=== PATIENT | male | born 1980 | race Caucasian/White ===

== ENCOUNTER 2017-04-14 18:17 | Inpatient (IN) | payer OTHER ==
[~2017-04-14] VITALS: Ht 177.8 cm; Wt 97.2 kg
[~2017-04-14 18:17] MED LIST: ADVAIR HFA120 INHALA IH; AMOXICILLIN875 MG PO; AUGMENTIN875 MG PO; AZITHROMYCIN250 MG1 PO; CLINDAMYCIN HC300 MG PO; LEVOFLOXACIN500 MG PO; METHADONE5 MG PO; MOTRIN800 MG PO; NAPROSYN500 MG PO; NEURONTIN100 MG PO; NOHOMEMEDS; NORCO 5/3251 TABLET PO; NORVIR100 M1; NORVIR100 M1 PO; NORVIR100 MG PO; PREZISTA400 MG; PREZISTA800 MG PO; SEROQUEL50 MG PO; SUBOXONE 8 M1 TABLET PO; TRUVADA1 TABLET; TRUVADA1 TABLET PO; VALIUM5 MG PO; VICODIN,LORT1 TABLET PO; ZITHROMAX Z-PA250 MG PO; [UNRECOGNIZED DRUG - OTHER]
[2017-04-14 19:13] LABS: HEMATOCRIT 35.8 % (38.0-50.0); MCH 29.9 PG (29.0-34.0); MCV 90.6 FL (86-99); PLATELET COUNT 194 K/uL (156-360); RBC DIS.WIDTH-CV 12.7 % (11.8-14.6); RED BLOOD COUNT 3.95 M/uL (4.00-5.50); WHITE BLOOD COUNT 9.1 K/uL (4.1-10.2)
[2017-04-14 19:20] LABS: CHLORIDE 101 mEq/L (99-109); POTASSIUM 3.4 mEq/L (3.7-5.4); SODIUM 139 mEq/L (136-147)
[2017-04-14 19:21] LABS: GLUCOSE 70 mg/dL (70-99)
[2017-04-14 19:23] LABS: ANION GAP 13 MEQ/L (2-14)
[2017-04-14 19:25] LABS: GFR ESTIMATE (CALCULATED) > 59 mL/min/
[2017-04-14 19:26] LABS: UREA NITROGEN (BUN) 6 mg/dL (9-23)
[2017-04-14 19:49] LABS: ADD MIUA? YES; BILIRUBIN NEGATIVE; BLOOD NEGATIVE; COLOR AMBER ((YELLOW)); GLUCOSE (STRIP) NEGATIVE; KETONES NEGATIVE; LEUKOCYTES NEGATIVE; NITRITE NEGATIVE; PROTEIN (STRIP) 30; SPECIFIC GRAVITY 1.025 (1.000-1.030)
[2017-04-14 20:01] LABS: BACTERIA RARE /HPF; EPITHELIAL CELLS RARE /HPF; MUCUS TRACE /LPF; RED BLOOD CELLS 0-5 /HPF (0-5); UCUL ADDED? NO; WHITE BLOOD CELLS 0-5 /HPF (0-5)
[2017-04-14] MEDS ORDERED: TYLENOL EXTRA500 MG PO (21:56)
[2017-04-14] MEDS ORDERED: VENTOLIN HFA18 GM IH (21:56)
[2017-04-14] MEDS ORDERED: DAY TIME COLD-237 ML PO (21:57)
[2017-04-15 03:21] VITALS: BP 117/61
[2017-04-15 08:12] VITALS: BP 105/56
[2017-04-15 09:33] LABS: INTERNAL CONTROL VALID? YES
[2017-04-15 16:32] VITALS: BP 109/58
[2017-04-16 00:09] VITALS: BP 104/64
[2017-04-16 06:15] LABS: EOSINOPHIL (%) 1.6 % (0-5); EOSINOPHIL COUNT 0.1 K/uL (0-0.3); HEMATOCRIT 36.3 % (38.0-50.0); IMMATURE GRANULOCYTE (%) 0.4 % (0.0-0.7); INSTRUMENT ABS NEUTROPHIL CT 3.3 K/uL; LYMPHOCYTE COUNT 1.9 K/uL (1.0-2.8); MCH 29.7 PG (29.0-34.0); MCV 93.1 FL (86-99); MEAN PLAT.VOLUME 10.5 uM^3 (9.0-12.4); MONOCYTE COUNT 0.3 K/uL (0-0.8); NEUTROPHIL (%) 57.5 % (45-76); NEUTROPHIL COUNT 3.3 K/uL (1.8-6.4); PLATELET COUNT 161 K/uL (156-360); RBC DIS.WIDTH-CV 13.2 % (11.8-14.6); RBC DIS.WIDTH-SD 44.8 % (39-53); WHITE BLOOD COUNT 5.7 K/uL (4.1-10.2)
[2017-04-16 06:46] LABS: ALKALINE PHOSPHATASE 113 IU/L (3-129); ANION GAP 8 MEQ/L (2-14); CHLORIDE 110 MEQ/L (99-109); GFR ESTIMATE (CALCULATED) > 59 mL/min/; GLUCOSE 86 mg/dL (70-99); SAMPLE HEMOLYSIS CHECK 0; SAMPLE ICTERIC CHECK 0; SAMPLE LIPEMIA CHECK 0; SODIUM 143 MEQ/L (136-147); TOTAL BILIRUBIN 0.2 MG/DL (0.0-1.0); UREA NITROGEN (BUN) 7 mg/dL (9-23)
[2017-04-16 06:47] LABS: POTASSIUM 4.4 MEQ/L (3.7-5.4)
[2017-04-16 08:52] LABS: INFLUENZA A VIRAL ANTIGEN NEGATIVE; INFLUENZA B VIRAL ANTIGEN NEGATIVE
[2017-04-16] MEDS ORDERED: DOXYCYCLINE HY100 M3 PO (10:27)
[2017-04-16] MEDS ORDERED: LEVAQUIN750 MG PO (10:27)
== END 2017-04-16 12:45 | disposition home or self-care (01) | DRG 975 ==
LOC: EME 18:17 → EDOF 04-15 00:03 → ENRESERV 04-15 00:17 → 5EAST 04-15 02:21 → ENPENDDIS 04-16 → 5EAST 04-16 12:45
PROVIDERS: Hospitalist; Internal Medicine Infectious Disease
DX: J18.9 Pneumonia, unspecified organism (principal); B20 Human immunodeficiency virus [HIV] disease; J44.0 Chronic obstructive pulmonary disease with (acute) lower respiratory infection; E87.6 Hypokalemia; J34.0 Abscess, furuncle and carbuncle of nose; F17.210 Nicotine dependence, cigarettes, uncomplicated; Z83.3 Family history of diabetes mellitus; Z23 Encounter for immunization
CPT/HCPCS: 71020; 80048; 80076; 81003; 85025; 85027; 87040; 87070; 87205; 87449; 87502; 90686; 94640; 94640 76; 99202; 99281; 99285; J0456; J0696; J1956; J2405; J7030; J7050

== ENCOUNTER 2017-10-27 08:06 | Emergency (ER) | payer OTHER ==
[~2017-10-27] VITALS: Ht 180.3 cm; Wt 93.8 kg
[~2017-10-27 08:06] MED LIST changes: +DAY TIME COLD-237 ML PO; +DOXYCYCLINE HY100 M3 PO; +LEVAQUIN750 MG PO; +TYLENOL EXTRA500 MG PO; +VENTOLIN HFA18 GM IH
[2017-10-27 08:34] LABS: HEMATOCRIT 37.8 % (38.0-50.0); HEMOGLOBIN 12.6 G/DL (12.5-16.6); MCH 29.9 PG (29.0-34.0); MCHC 33.3 G/DL (30.0-36.0); MCV 89.6 FL (86-99); PLATELET COUNT 130 K/uL (156-360); RBC DIS.WIDTH-SD 42.5 % (39-53); RED BLOOD COUNT 4.22 M/uL (4.00-5.50); WHITE BLOOD COUNT 6.6 K/uL (4.1-10.2)
[2017-10-27 09:09] LABS: CHLORIDE 104 MEQ/L (99-109); POTASSIUM 4.1 MEQ/L (3.7-5.4); SODIUM 136 MEQ/L (136-147)
[2017-10-27 09:15] LABS: CREATININE 0.6 MG/DL (0.6-1.3); GFR ESTIMATE (CALCULATED) > 59 mL/min/ (58.99-99999); GLUCOSE 105 mg/dL (70-99); UREA NITROGEN (BUN) 8 mg/dL (9-23)
[2017-10-27 09:26] LABS: TROP-I INTERPRETATION NEGATIVE; TROPONIN-I < 0.01 ng/mL (0.0-0.30)
[2017-10-27 09:35] LABS: APPEARANCE CLEAR ((CLEAR)); BILIRUBIN NEGATIVE; BLOOD NEGATIVE; COLOR YELLOW ((YELLOW)); GLUCOSE (STRIP) NEGATIVE; KETONES NEGATIVE; LEUKOCYTES NEGATIVE; NITRITE NEGATIVE; PROTEIN (STRIP) 30; SPECIFIC GRAVITY 1.023 (1.000-1.030); UCUL ADDED? NO
[2017-10-27] MEDS ORDERED: PREDNISONE20 MG PO (11:37)
[2017-10-27] MEDS ORDERED: TAMIFLU75 MG PO (11:56)
[2017-10-27 12:12] VITALS: BP 107/69
== END 2017-10-27 12:35 | disposition home or self-care (01) ==
LOC: EME 08:06
PROVIDERS: Physician Assistant
DX: J10.1 Influenza due to other identified influenza virus with other respiratory manifestations (principal); J44.1 Chronic obstructive pulmonary disease with (acute) exacerbation; B20 Human immunodeficiency virus [HIV] disease; F17.200 Nicotine dependence, unspecified, uncomplicated; Z88.2 Allergy status to sulfonamides
CPT/HCPCS: 71046; 80048; 81003; 84484; 85027; 87502; 87651 90; 93005; 94640; 99281; 99284; J2930